=== PATIENT | male | born 1955 | race African-American/Black ===

== ENCOUNTER 2016-10-10 22:16 | Inpatient (IN) | payer OTHER ==
[~2016-10-10] VITALS: Ht 177.8 cm; Wt 96.6 kg
[2016-10-10 23:25] LABS: HEMATOCRIT 46.1 % (38.0-50.0); MCH 29.4 PG (29.0-34.0); MCHC 34.7 G/DL (30.0-36.0); MCV 84.7 FL (86-99); RBC DIS.WIDTH-CV 12.4 % (11.8-14.6); RED BLOOD COUNT 5.44 M/uL (4.00-5.50); WHITE BLOOD COUNT 19.4 K/uL (4.1-10.2)
[2016-10-10 23:33] LABS: CHLORIDE 103 mEq/L (99-109); POTASSIUM 3.6 mEq/L (3.7-5.4); SODIUM 136 mEq/L (136-147)
[2016-10-10 23:35] LABS: GLUCOSE 128 mg/dL (70-99)
[2016-10-10 23:36] LABS: ANION GAP 12 MEQ/L (2-14)
[2016-10-10 23:37] LABS: TOTAL BILIRUBIN 1.6 mg/dL (0.0-1.0)
[2016-10-10 23:39] LABS: ALKALINE PHOSPHATASE 59 IU/L (3-129); GFR ESTIMATE (CALCULATED) > 59 mL/min/
[2016-10-10 23:40] LABS: UREA NITROGEN (BUN) 10 mg/dL (9-23)
[2016-10-11 00:25] LABS: MEAN PLAT.VOLUME 10.7 uM^3 (9.0-12.4); PLAT.SUFFICIENCY ADEQUATE; PLATELET COUNT 194 K/uL (156-360)
[2016-10-11] MEDS ORDERED: MOBIC15 MG PO (07:55)
[2016-10-11] MEDS ORDERED: ZOCOR10 MG PO (07:55)
[2016-10-11] MEDS ORDERED: NORVASC10 MG PO (07:55)
[2016-10-11] MEDS ORDERED: DAILY VITE1 EAC1 PO (07:56)
[2016-10-11] MEDS ORDERED: ADVIL200 MG PO (07:56)
[2016-10-11 08:00] VITALS: BP 128/76
[2016-10-11 12:00] VITALS: BP 109/73
[2016-10-11 13:12] LABS: EOSINOPHIL (%) 0.6 % (0-5); EOSINOPHIL COUNT 0.1 K/uL (0-0.3); HEMATOCRIT 43.5 % (38.0-50.0); IMMATURE GRANULOCYTE (%) 0.4 % (0.0-0.7); IMMATURE GRANULOCYTE COUNT 0.1 K/uL; INSTRUMENT ABS NEUTROPHIL CT 10.6 K/uL; LYMPHOCYTE COUNT 1.1 K/uL (1.0-2.8); MCH 29.3 PG (29.0-34.0); MCHC 33.8 G/DL (30.0-36.0); MCV 86.8 FL (86-99); MEAN PLAT.VOLUME 10.5 uM^3 (9.0-12.4); MONOCYTE (%) 11.4 % (3-12); MONOCYTE COUNT 1.5 K/uL (0-0.8); NEUTROPHIL (%) 79.2 % (45-76); NEUTROPHIL COUNT 10.6 K/uL (1.8-6.4); PLATELET COUNT 171 K/uL (156-360); RBC DIS.WIDTH-CV 12.7 % (11.8-14.6); RED BLOOD COUNT 5.01 M/uL (4.00-5.50)
[2016-10-11 13:18] LABS: WHITE BLOOD COUNT 13.4 K/uL (4.1-10.2)
[2016-10-11 14:02] LABS: ANION GAP 8 MEQ/L (2-14); CHLORIDE 105 MEQ/L (99-109); GFR ESTIMATE (CALCULATED) > 59 mL/min/; GLUCOSE 115 mg/dL (70-99); POTASSIUM 4.1 MEQ/L (3.7-5.4); SAMPLE HEMOLYSIS CHECK 0; SAMPLE ICTERIC CHECK 0; SAMPLE LIPEMIA CHECK 0; SODIUM 139 MEQ/L (136-147); UREA NITROGEN (BUN) 11 mg/dL (9-23)
[2016-10-11 16:00] VITALS: BP 113/64
[2016-10-11 19:50] VITALS: BP 104/57
[2016-10-11 20:16] LABS: METH RESISTANT S AUREUS PCR POSITIVE (NEGATIVE)
[2016-10-11 20:28] LABS: PROBE CHECK PASS
[2016-10-11 23:40] VITALS: BP 110/70
[2016-10-12 05:10] VITALS: BP 107/69
[2016-10-12 08:09] LABS: EOSINOPHIL (%) 2.1 % (0-5); EOSINOPHIL COUNT 0.2 K/uL (0-0.3); IMMATURE GRANULOCYTE (%) 0.4 % (0.0-0.7); INSTRUMENT ABS NEUTROPHIL CT 7.7 K/uL; LYMPHOCYTE COUNT 1.1 K/uL (1.0-2.8); MCH 29.8 PG (29.0-34.0); MCHC 34.3 G/DL (30.0-36.0); MEAN PLAT.VOLUME 10.8 uM^3 (9.0-12.4); MONOCYTE COUNT 1.4 K/uL (0-0.8); NEUTROPHIL (%) 73.4 % (45-76); NEUTROPHIL COUNT 7.7 K/uL (1.8-6.4); PLATELET COUNT 176 K/uL (156-360); RBC DIS.WIDTH-CV 12.5 % (11.8-14.6); RBC DIS.WIDTH-SD 39.2 % (39-53); WHITE BLOOD COUNT 10.5 K/uL (4.1-10.2)
[2016-10-12 08:37] VITALS: BP 130/79
[2016-10-12 08:40] LABS: ANION GAP 8 MEQ/L (2-14); CHLORIDE 110 MEQ/L (99-109); GFR ESTIMATE (CALCULATED) > 59 mL/min/; GLUCOSE 102 mg/dL (70-99); POTASSIUM 4.1 MEQ/L (3.7-5.4); SAMPLE HEMOLYSIS CHECK 0; SAMPLE ICTERIC CHECK 0; SAMPLE LIPEMIA CHECK 0; SODIUM 144 MEQ/L (136-147); UREA NITROGEN (BUN) 8 mg/dL (9-23)
[2016-10-12] MEDS ORDERED: ANTISEPTIC SKI237 ML TP (11:23)
[2016-10-12] MEDS ORDERED: BACTROBAN NASAL1 G1 BOTH NARES (11:23)
[2016-10-12] MEDS ORDERED: BACTRIM,SEPT1 TABLET PO (11:23)
[2016-10-12 13:10] VITALS: BP 130/78
[2016-10-12 16:00] VITALS: BP 139/80
[2016-10-12 19:47] VITALS: BP 118/74
[2016-10-13 00:11] VITALS: BP 121/77
[2016-10-13 04:28] VITALS: BP 117/83
[2016-10-13 08:00] VITALS: BP 115/74
== END 2016-10-13 09:05 | disposition home or self-care (01) | DRG 603 ==
LOC: EME 22:16 → EXP 22:16 → EDOF 10-11 02:57 → 4SOUTH 10-11 02:57
PROVIDERS: Hospitalist; Internal Medicine; Internal Medicine Infectious Disease; Physician Assistant
PROC: 0X950ZX Drainage of Left Axilla, Open Approach, Diagnostic (ICD-10-PCS; principal; 2016-10-11)
DX: L03.114 Cellulitis of left upper limb (principal); L03.313 Cellulitis of chest wall; I10 Essential (primary) hypertension; E78.00 Pure hypercholesterolemia, unspecified; F17.200 Nicotine dependence, unspecified, uncomplicated; D72.829 Elevated white blood cell count, unspecified; B95.62 Methicillin resistant Staphylococcus aureus infection as the cause of diseases classified elsewhere
CPT/HCPCS: 71260; 80048; 80053; 80202; 83605; 85025; 85027; 87040; 87070; 87075; 87077; 87147; 87186; 87205; 87641; 99281; 99285; J0295; J0690; J1170; J1650; J1885; J2270; J2405; J3370; J7030; J7050